=== PATIENT | male | born 1975 | race Caucasian/White ===

== ENCOUNTER → 2017-01-16 | Outpatient (CLI) | payer OTHER ==
[~2017-01-16] MED LIST: ALBU8I INH; ALBUAER3 INH; IOHEXOL 350 MG/ML 10 ML VIAL (for RAD DIAG) IV ONE; MONT10TA2 PO; MONT4CHW2 CHEW; NITROGLYCERIN 0.4 MG SL 25 TABS/BTL SL ONE; PRED50TA PO; SYMB80AE INH
--- NOTE | 2017-01-16 14:04 | RADRPT ---
EXAM DATE/TIME: 01/16/2017 10:34 [facility] COMPARISON: No previous studies available for comparison. INDICATIONS : Chest pain. IV CONTRAST: 95 cc Omnipaque 350 (iohexol) IV RADIATION DOSE: 8.7 CTDIvol (mGy) MEDICAL HISTORY : Gastroesophageal reflux disease. Asthma. SURGICAL HISTORY : Cholecystectomy. ENCOUNTER: Initial ACUITY: 1 week PAIN SCALE: 1/10 LOCATION: Bilateral chest TECHNIQUE: Volumetric scanning was obtained through the heart. Images were acquired on a multislice multiple ro w detector helical scanner timed for acquisition during peak arterial contrast. Images were reconstr ucted using a retrospective gating algorithm including single sector and multi-sector algorithms at m ultiple phases of the cardiac cycle. Images were interpreted using a combination of 2D and 3D visual ization modes including curved planar reformation, thin slab maximum intensity projection and volume rendering. Using automated exposure control and adjustment of the mA and/or kV according to patient size, radiation dose was kept as low as reasonably achievable to obtain optimal diagnostic quality im ages. FINDINGS: VESSEL ANALYSIS: DOMINANCE: The coronary system is left dominant with the posterior descending being supplied by the coronary art anatoliy. LEFT MAIN: Normal vessel without calcification or stenosis. LAD: Normal vessel caliber with minimal calcification in the LAD between the first and qsecond diagon al CIRCUMFLEX: Normal vessel without calcification or stenosis. RCA: Normal vessel without calcification or stenosis. OTHER: Calcium score of 3. This places the patient in the 60th percentile for age meaning that 40% of m ales between the ages of 41-45 to have a higher calcium score in this patient. CONCLUSION: 1. Calcium score of 3 which places patient in the 60th percentile for age. 2. Otherwise, coronary arteries are all widely patent with no significant stenosis. Patient is left c oronary dominant. 3. Minimal, dependent bilateral atelectatic changes. Stefano Velasco MD on January 16, 2017 at 13:44 Board Certified Radiologist. This report was verified electronically.
== END ==
LOC: HRAD 09:15
DX: R07.89 Other chest pain (principal)
CPT/HCPCS: 75574; Q9967

== ENCOUNTER 2017-02-15 12:35 | Emergency (ER) | payer OTHER ==
[~2017-02-15] VITALS: Ht 193 cm; Wt 105.0 kg
[~2017-02-15 12:35] MED LIST changes: -ALBUAER3 INH; -IOHEXOL 350 MG/ML 10 ML VIAL (for RAD DIAG) IV ONE; -MONT10TA2 PO; -NITROGLYCERIN 0.4 MG SL 25 TABS/BTL SL ONE; -SYMB80AE INH
[2017-02-15 12:36] VITALS: BP 129/78; PULSE 64; RESP 20; TEMP 97.4; O2SAT 99
[2017-02-15 12:40] VITALS: BP 122/78; PULSE 67; RESP 16; O2SAT 95
[2017-02-15] MEDS ORDERED: ALBUAER3 INH (12:53)
[2017-02-15] MEDS ORDERED: SYMB80AE INH (12:53)
[2017-02-15] MEDS ORDERED: MONT10TA2 PO (12:53)
--- NOTE | 2017-02-15 12:57 | PD ---
HPI Chief Complaint: Chest Pain Time Seen by Provider: 12:39 Travel History International Travel<30 days: No Contact w/Intl Traveler<30days: No Traveled to known affect area: No History of Present Illness HPI This is a 41-year-old male who presents to the emergency department with chest discomfort that he says has been going on for years described as pressure in the center of his chest, worse with deep breaths, improved with rest. He's been sick with an upper respiratory infection over the past week and has been taking prednisone. This has made everything worse and it's worse when he coughs. He went to a mental health appointment today where he told his psychiatrist that he has been having chest pains. They did an EKG and saw some T-wave inversions they sent him to the emergency department. Patient has been following with a marine architect and just had a cardiac CTA performed in January. The patient denies any change in his symptoms over the past week aside from the pain being slightly worse when he coughs. He otherwise would not have gone to the doctor or come to the hospital for this chest pain. PFSH Past Medical History Arthritis: Yes Asthma: Yes Anxiety: Yes Depression: Yes Cardiovascular Problems: No GERD: Yes Reproductive: Yes (LOW TESTOSTERONE) Respiratory: Yes (ASTHMA) Influenza Vaccination: Yes Past Surgical History Abdominal Surgery: Yes (2 HERNIA SURGERIES) Cholecystectomy: Yes Other Surgery: Yes (DEVIATED SEPTUM) Social History Alcohol Use: Yes (OCCASIONALLY) Tobacco Use: No (CHEWING TOBACCO) Substance Use: No Allergies-Medications (Allergen,Severity, Reaction): Coded Allergies: No Known Allergies (Unverified , 02/15/17) Reported Meds & Prescriptions Reported Meds & Active Scripts Active Reported Symbicort Inh (Budesonide/Formoterol Fumarate) 80-4.5 Mcg/Act Aero 2 Puff INH Q12HR Proair Hfa 8.5 GM Inh (Albuterol Sulfate) 90 Mcg/Act Aer 2 Puff INH Q6H PRN 108 mcg/actuation Singulair (Montelukast Sodium) 10 Mg Tab 4 Mg PO HS Review of Systems Except as stated in HPI: all other systems reviewed are Neg Physical Exam Narrative GENERAL:Well appearing, no acute distress SKIN: Warm and dry. HEAD: Atraumatic. Normocephalic. EYES: Pupils equal and round. No injection or drainage. ENT: Moist mucous membranes NECK: Trachea midline. CARDIOVASCULAR: Regular rate and rhythm. No murmur appreciated. RESPIRATORY: Clear to auscultation. Breath sounds equal bilaterally. GASTROINTESTINAL: Abdomen soft, non-tender, nondistended. MUSCULOSKELETAL: No obvious deformities. NEUROLOGICAL: Awake and alert. No obvious cranial nerve deficits. PSYCHIATRIC: Appropriate mood and affect; insight and judgment normal. Data Data Last Documented VS Vital Signs Date Time Temp Pulse Resp B/P Pulse Ox O2 Delivery O2 Flow Rate FiO2 02/15/17 12:40 67 16 122/78 95 02/15/17 12:36 97.4 Room Air Orders Electrocardiogram (02/15/17 12:46) Complete Blood Count With Diff (02/15/17 12:46) Comprehensive Metabolic Panel (02/15/17 12:46) Troponin I (02/15/17 12:46) Chest, Single Ap (02/15/17 12:46) Ecg Monitoring (02/15/17 12:46) Bilateral Bp Monitoring (02/15/17 12:46) Iv Access Insert/Monitor (02/15/17 12:46) Oximetry (02/15/17 12:46) Oxygen Administration (02/15/17 12:46) Sodium Chloride 0.9% Flush (Ns Flush) (02/15/17 13:00) Labs Laboratory Tests Test 02/15/17 13:05 White Blood Count 7.9 TH/MM3 Red Blood Count 4.81 MIL/MM3 Hemoglobin 14.5 GM/DL Hematocrit 41.1 % Mean Corpuscular Volume 85.5 FL Mean Corpuscular Hemoglobin 30.2 PG Mean Corpuscular Hemoglobin 35.3 % Concent Red Cell Distribution Width 13.4 % Platelet Count 246 TH/MM3 Mean Platelet Volume 7.2 FL Neutrophils (%) (Auto) 59.2 % Lymphocytes (%) (Auto) 27.7 % Monocytes (%) (Auto) 10.2 % Eosinophils (%) (Auto) 2.5 % Basophils (%) (Auto) 0.4 % Neutrophils # (Auto) 4.7 TH/MM3 Lymphocytes # (Auto) 2.2 TH/MM3 Monocytes # (Auto) 0.8 TH/MM3 Eosinophils # (Auto) 0.2 TH/MM3 Basophils # (Auto) 0.0 TH/MM3 CBC Comment AUTO DIFF Sodium Level 142 MEQ/L Potassium Level 3.6 MEQ/L Chloride Level 104 MEQ/L Carbon Dioxide Level 30.8 MEQ/L Anion Gap 7 MEQ/L Blood Urea Nitrogen 23 MG/DL Creatinine 1.09 MG/DL Estimat Glomerular Filtration 74 ML/MIN Rate Random Glucose 99 MG/DL Calcium Level 8.5 MG/DL Total Bilirubin 0.6 MG/DL Aspartate Amino Transf 48 U/L (AST/SGOT) Alanine Aminotransferase 89 U/L (ALT/SGPT) Alkaline Phosphatase 94 U/L Troponin I LESS THAN 0.02 NG/ML Total Protein 7.1 GM/DL Albumin 4.1 GM/DL MDM Medical Decision Making Medical Screen Exam Complete: Yes Emergency Medical Condition: Yes Interpretation(s) Afebrile, no tachycardia, normotensive No leukocytosis Mild transaminitis Troponin normal Differential Diagnosis Acute coronary syndrome, costochondritis, pneumonia, GERD, bronchitis Narrative Course This is a 41-year-old male who presents to the emergency department with chest pain that's been going on for years. He says his gotten a little bit worse in the setting of her recent upper respiratory infection. He wouldn't come here except his mental health provider at the [facility] didn't EKG and saw some T-wave inversions. He had a cardiac CTA done on January which demonstrated a calcium score of 3. While the patient may require further risk stratification, I don't think he needs to be done today. His chest pain he says has been constant for months to years. His troponin is normal here. I think the patient can safely be discharged and follow-up with his outpatient marine architect. Diagnosis Primary Impression: Atypical chest pain Patient Instructions: General Instructions Additional Instructions: If you develop severe chest pain, shortness of breath, sweating, lightheadedness , dizziness or difficulty breathing return to the emergency department immediately. Follow-up with her marine architect as scheduled without fail. Med/Other Pt SpecificInfo: No Change to Meds Disposition: 01 DISCHARGE HOME Condition: Stable Stacey Mansfield MD Feb 15, 2017 12:57
[2017-02-15] MEDS ORDERED: SODIUM CHLORIDE 0.9% FLUSH 5 ML FLUSH IVF PRN (13:00)
[2017-02-15 13:12] LABS: AUTOMATED NEUTROPHIL # 4.7 TH/MM3 (1.8-7.7); BASOPHIL % 0.4 % (0.0-2.0); EOSINOPHIL # 0.2 TH/MM3 (0-0.4); EOSINOPHIL % 2.5 % (0.0-4.0); HEMATOCRIT 41.1 % (39.0-51.0); LYMPH % 27.7 % (9.0-44.0); LYMPHOCYTE # 2.2 TH/MM3 (1.0-4.8); MEAN CELL VOLUME 85.5 FL (80.0-100.0); MEAN CORPUSCULAR HEMOGLOBIN 30.2 PG (27.0-34.0); MEAN CORPUSCULAR HGB CONC 35.3 % (32.0-36.0); MONO % 10.2 % (0.0-8.0); NEUT % 59.2 % (16.0-70.0); PLATELET COUNT 246 TH/MM3 (150-450); RED BLOOD COUNT 4.81 MIL/MM3 (4.50-5.90); RED CELL DISTRIBUTION WIDTH 13.4 % (11.6-17.2); WHITE BLOOD COUNT 7.9 TH/MM3 (4.0-11.0)
[2017-02-15 13:14] LABS: HEMO FLAGS AUTO DIFF
[2017-02-15 13:33] LABS: ANION GAP 7 MEQ/L (5-15); AST (GOT) 48 U/L (15-37); BICARBONATE 30.8 MEQ/L (21.0-32.0); BLOOD UREA NITROGEN 23 MG/DL (7-18); CHLORIDE 104 MEQ/L (98-107); GLOMERULAR FILTRATION RATE 74 ML/MIN (>89); POTASSIUM 3.6 MEQ/L (3.5-5.1); SODIUM (NA) 142 MEQ/L (136-145)
[2017-02-15 13:39] LABS: ALKALINE PHOSPHATASE 94 U/L (45-117); ALT (GPT) 89 U/L (12-78); TOTAL BILIRUBIN ADULT 0.6 MG/DL (0.2-1.0)
--- NOTE | 2017-02-15 13:43 | RADRPT ---
EXAM DATE/TIME: 02/15/2017 12:59 [facility] COMPARISON: CHEST SINGLE AP, October 18, 2015, 18:15. INDICATIONS : Chest pains. MEDICAL HISTORY : None. SURGICAL HISTORY : None. ENCOUNTER: Initial ACUITY: 1 day PAIN SCORE: 4/10 LOCATION: Bilateral chest FINDINGS: A single view of the chest demonstrates the lungs to be symmetrically aerated without evidence of mas s, infiltrate or effusion. The cardiomediastinal contours are unremarkable. Osseous structures are intact. CONCLUSION: Normal examination. Gilberto Bernard Jr., MD on February 15, 2017 at 13:41 Board Certified Radiologist. This report was verified electronically.
[2017-02-15 13:47] LABS: BANDS 2 % (0-6); EOSINOPHILS 3 % (0-4); METAMYELOCYTES 1 % (0-1); MYELOCYTES 1 % (0-0); NEUTROPHIL # MANUAL DIFF 5.3 TH/MM3 (1.8-7.7); PLATELET ESTIMATE SMEAR NORMAL (NORMAL); PLATELET MORPHOLOGY NORMAL (NORMAL); POLYS (SEG NEUTROPHILS) 63 % (16-70); SCAN/DIFF FINAL DIFF MANUAL; WBC DIFF SAMPLE 100
--- NOTE | 2017-02-15 18:01 | EKG ---
Date Performed: 02/15/2017 Time Performed: 10:50:00 PTAGE: 41 years EKG: Sinus rhythm NONSPECIFIC T-WAVE ABNORMALITY BORDERLINE ECG NO SIGNIFICANT CHANGE FROM PRIOR ELECTROCARDIOGRAM. PREVIOUS TRACING : 10/18/2015 18.05 DOCTOR: Pasha Mckinnon Interpretating Date/Time 02/15/2017 17:58:56
== END 2017-02-15 14:29 | disposition home or self-care (01) ==
LOC: NEPC 12:35
DX: R07.89 Other chest pain (principal); J45.909 Unspecified asthma, uncomplicated
CPT/HCPCS: 71010; 80053; 84484; 85007; 85027; 93005

== ENCOUNTER 2017-09-09 10:21 | Emergency (ER) | payer OTHER ==
[~2017-09-09 10:21] MED LIST changes: -ALBU8I INH; +ALBUAER3 INH; +MONT10TA2 PO; -MONT4CHW2 CHEW; -PRED50TA PO; +SYMB80AE INH
[2017-09-09 10:35] VITALS: BP 132/85; PULSE 81; RESP 20; TEMP 98; O2SAT 96
--- NOTE | 2017-09-09 10:43 | PD ---
HPI Chief Complaint: Chest Pain Time Seen by Provider: 10:30 Travel History International Travel<30 days: No Contact w/Intl Traveler<30days: No Traveled to known affect area: No History of Present Illness HPI Patient is a 41-year-old male presents emergency primary for evaluation of chest pain. He's had some evaluations for chest pain in the recent past states it's persistent. States is on the right side of his chest rate in the middle as well and worsens with palpation or deep breathing. Denies any shortness of breath denies any blurred vision dizziness. He states that despite being worked up no one can figure out what is causing his chest pain. He has been evaluated recently here as well. States he did have a stress test sometime ago which was negative but has not had one recently. Followed at the [facility]. Symptoms are mild to moderate, duration is several months, waxing and waning, associated symptoms as above PFSH Past Medical History Arthritis: Yes Asthma: Yes Anxiety: Yes Depression: Yes Cardiovascular Problems: No GERD: Yes Psychiatric: Yes (PTSD) Reproductive: Yes (LOW TESTOSTERONE) Respiratory: Yes (ASTHMA) Past Surgical History Abdominal Surgery: Yes (2 HERNIA SURGERIES) Cholecystectomy: Yes Other Surgery: Yes (DEVIATED SEPTUM) Social History Alcohol Use: Yes (OCCASIONALLY) Tobacco Use: No (CHEWING TOBACCO) Substance Use: No Allergies-Medications (Allergen,Severity, Reaction): Coded Allergies: No Known Allergies (Unverified , 09/09/17) Reported Meds & Prescriptions Reported Meds & Active Scripts Active Reported Symbicort Inh (Budesonide/Formoterol Fumarate) 80-4.5 Mcg/Act Aero 2 Puff INH Q12HR Proair Hfa 8.5 GM Inh (Albuterol Sulfate) 90 Mcg/Act Aer 2 Puff INH Q6H PRN 108 mcg/actuation Review of Systems Except as stated in HPI: all other systems reviewed are Neg Physical Exam Narrative GENERAL: Well-developed well-nourished no obvious distress SKIN: Focused skin assessment warm/dry. HEAD: Atraumatic. Normocephalic. EYES: Pupils equal and round. No scleral icterus. No injection or drainage. ENT: No nasal bleeding or discharge. Mucous membranes pink and moist. NECK: Trachea midline. No JVD. CARDIOVASCULAR: Regular rate and rhythm. No murmur appreciated. RESPIRATORY: No accessory muscle use. Clear to auscultation. Breath sounds equal bilaterally. GASTROINTESTINAL: Abdomen soft, non-tender, nondistended. Hepatic and splenic margins not palpable. MUSCULOSKELETAL: No obvious deformities. No clubbing. No cyanosis. No edema. NEUROLOGICAL: Awake and alert. No obvious cranial nerve deficits. Motor grossly within normal limits. Normal speech. PSYCHIATRIC: Appropriate mood and affect; insight and judgment normal. Data Data Last Documented VS Vital Signs Date Time Temp Pulse Resp B/P (MAP) Pulse Ox O2 Delivery O2 Flow Rate FiO2 09/09/17 12:10 09/09/17 11:24 62 20 97 09/09/17 10:35 98.0 Orders Orders Electrocardiogram (09/09/17 10:42) Ckmb (Isoenzyme) Profile (09/09/17 10:42) Complete Blood Count With Diff (09/09/17 10:42) Comprehensive Metabolic Panel (09/09/17 10:42) D-Dimer (09/09/17 10:42) Magnesium (Mg) (09/09/17 10:42) Prothrombin Time / Inr (Pt) (09/09/17 10:42) Act Partial Throm Time (Ptt) (09/09/17 10:42) Troponin I (09/09/17 10:42) Chest, Single Ap (09/09/17 10:42) Ecg Monitoring (09/09/17 10:42) Iv Access Insert/Monitor (09/09/17 10:42) Oximetry (09/09/17 10:42) Oxygen Administration (09/09/17 10:42) Aspirin Chew (Aspirin Chew) (09/09/17 10:45) Sodium Chloride 0.9% Flush (Ns Flush) (09/09/17 10:45) CKMB (09/09/17 10:30) CKMB% (09/09/17 10:30) Labs Laboratory Tests Test 09/09/17 10:30 White Blood Count 6.5 TH/MM3 Red Blood Count 4.99 MIL/MM3 Hemoglobin 14.7 GM/DL Hematocrit 43.7 % Mean Corpuscular Volume 87.7 FL Mean Corpuscular Hemoglobin 29.4 PG Mean Corpuscular Hemoglobin Concent 33.5 % Red Cell Distribution Width 12.4 % Platelet Count 233 TH/MM3 Mean Platelet Volume 7.8 FL Neutrophils (%) (Auto) 60.6 % Lymphocytes (%) (Auto) 26.4 % Monocytes (%) (Auto) 8.1 % Eosinophils (%) (Auto) 4.3 % Basophils (%) (Auto) 0.6 % Neutrophils # (Auto) 4.0 TH/MM3 Lymphocytes # (Auto) 1.7 TH/MM3 Monocytes # (Auto) 0.5 TH/MM3 Eosinophils # (Auto) 0.3 TH/MM3 Basophils # (Auto) 0.0 TH/MM3 CBC Comment DIFF FINAL Differential Comment Prothrombin Time 10.7 SEC Prothromb Time International Ratio 1.0 RATIO Activated Partial Thromboplast Time 28.4 SEC D-Dimer Quantitative (PE/DVT) 0.27 MG/L FEU Blood Urea Nitrogen 14 MG/DL Creatinine 1.00 MG/DL Random Glucose 100 MG/DL Total Protein 7.6 GM/DL Albumin 4.5 GM/DL Calcium Level 8.9 MG/DL Magnesium Level 2.1 MG/DL Alkaline Phosphatase 87 U/L Aspartate Amino Transf (AST/SGOT) 23 U/L Alanine Aminotransferase (ALT/SGPT) 51 U/L Total Bilirubin 0.6 MG/DL Sodium Level 140 MEQ/L Potassium Level 3.5 MEQ/L Chloride Level 104 MEQ/L Carbon Dioxide Level 29.4 MEQ/L Anion Gap 7 MEQ/L Estimat Glomerular Filtration Rate 82 ML/MIN Total Creatine Kinase 141 U/L Creatine Kinase MB 2.1 NG/ML Troponin I LESS THAN 0.02 NG/ML MDM Medical Decision Making Medical Screen Exam Complete: Yes Emergency Medical Condition: Yes Differential Diagnosis chest wall pain, ACS seems unlikely, chest pain with low risk for cardiac etiology, pneumonia. Narrative Course patient roomed in emergency department, troponin and d-dimer negative, chest x- ray negative. EKG shows nonspecific T-wave flattening but no significant changes. The patient on revisit is sleeping soundly in no distress. At this time I think he is low risk for cardiac etiology and can follow up with the [facility] for further workup. Discussed signs symptoms that should prompt emergent return to the ER. His chronic nature of his pain which just cause other than his heart as well. He is stable for discharge. Diagnosis Primary Impression: Chest pain with low risk for cardiac etiology Additional Instructions: Follow up with the [facility] this week for further evaluation. Disposition: 01 DISCHARGE HOME Condition: Stable Sajan Gay MD Sep 09, 2017 10:43
[2017-09-09 10:44] VITALS: O2SAT 99
[2017-09-09] MEDS ORDERED: ASPIRIN 81 MG CHEW TAB PO ONE (10:45)
[2017-09-09] MEDS ORDERED: SODIUM CHLORIDE 0.9% FLUSH 10 ML FLUSH IVF PRN (10:45)
[2017-09-09 10:56] LABS: BASOPHIL % 0.6 % (0.0-2.0); EOSINOPHIL # 0.3 TH/MM3 (0-0.4); EOSINOPHIL % 4.3 % (0.0-4.0); HEMATOCRIT 43.7 % (39.0-51.0); HEMO FLAGS DIFF FINAL; LYMPH % 26.4 % (9.0-44.0); LYMPHOCYTE # 1.7 TH/MM3 (1.0-4.8); MEAN CELL VOLUME 87.7 FL (80.0-100.0); MEAN CORPUSCULAR HEMOGLOBIN 29.4 PG (27.0-34.0); MEAN CORPUSCULAR HGB CONC 33.5 % (32.0-36.0); MONO % 8.1 % (0.0-8.0); NEUT % 60.6 % (16.0-70.0); PLATELET COUNT 233 TH/MM3 (150-450); RED BLOOD COUNT 4.99 MIL/MM3 (4.50-5.90); RED CELL DISTRIBUTION WIDTH 12.4 % (11.6-17.2); WHITE BLOOD COUNT 6.5 TH/MM3 (4.0-11.0)
[2017-09-09 11:02] LABS: CHLORIDE 104 MEQ/L (98-107); POTASSIUM 3.5 MEQ/L (3.5-5.1); SODIUM (NA) 140 MEQ/L (136-145)
[2017-09-09 11:06] LABS: ANION GAP 7 MEQ/L (5-15); BICARBONATE 29.4 MEQ/L (21.0-32.0); BLOOD UREA NITROGEN 14 MG/DL (7-18); MAGNESIUM 2.1 MG/DL (1.5-2.5)
[2017-09-09 11:09] LABS: ALT (GPT) 51 U/L (12-78); AST (GOT) 23 U/L (15-37); GLOMERULAR FILTRATION RATE 82 ML/MIN (>89)
[2017-09-09 11:10] LABS: TOTAL BILIRUBIN ADULT 0.6 MG/DL (0.2-1.0)
[2017-09-09 11:12] LABS: ALKALINE PHOSPHATASE 87 U/L (45-117); CREATINE KINASE 141 U/L (39-308)
--- NOTE | 2017-09-09 11:18 | RADRPT ---
EXAM DATE/TIME: 09/09/2017 11:07 [facility] COMPARISON: No previous studies available for comparison. INDICATIONS : Chest Pain MEDICAL HISTORY : None. SURGICAL HISTORY : None. ENCOUNTER: Initial ACUITY: 1 day PAIN SCORE: 4/10 LOCATION: Bilateral chest FINDINGS: A single view of the chest demonstrates the lungs to be symmetrically aerated without evidence of mas s, infiltrate or effusion. The cardiomediastinal contours are unremarkable. Osseous structures are intact. CONCLUSION: No acute disease. Jassi Greenberg MD on September 09, 2017 at 11:17 Board Certified Radiologist. This report was verified electronically.
[2017-09-09 11:20] LABS: APTT (PATIENT) 28.4 SEC (24.3-30.1); PROTHROMBIN TIME - PATIENT 10.7 SEC (9.8-11.6)
[2017-09-09 11:24] VITALS: BP 121/72; PULSE 62; RESP 20; O2SAT 97
[2017-09-09 11:24] LABS: CKMB 2.1 NG/ML (0.5-3.6)
--- NOTE | 2017-09-09 16:06 | EKG ---
Date Performed: 09/09/2017 Time Performed: 10:28:33 PTAGE: 41 years EKG: Sinus rhythm Compared to previous tracing, nonspecific T wave changes have improved NORMAL ECG PREVIOUS TRACING : 02/15/2017 10.50 DOCTOR: Shailesh Boyer Interpretating Date/Time 09/09/2017 16:05:29
== END 2017-09-09 12:11 | disposition home or self-care (01) ==
LOC: PHED 10:21
DX: R07.9 Chest pain, unspecified (principal); Z79.899 Other long term (current) drug therapy; Z87.39 Personal history of other diseases of the musculoskeletal system and connective tissue; Z87.09 Personal history of other diseases of the respiratory system; Z86.59 Personal history of other mental and behavioral disorders; Z87.19 Personal history of other diseases of the digestive system; Z87.438 Personal history of other diseases of male genital organs
CPT/HCPCS: 71010; 80053; 82550; 82552; 83735; 84484; 85025; 85379; 85610; 85730; 93005

== ENCOUNTER 2018-01-04 05:30 | Emergency (ER) | payer OTHER ==
[~2018-01-04] VITALS: Ht 193 cm; Wt 104.3 kg
[~2018-01-04 05:30] MED LIST changes: -MONT10TA2 PO
[2018-01-04 05:34] VITALS: BP 131/84; PULSE 75; RESP 18; TEMP 97.7; O2SAT 98
[2018-01-04] MEDS ORDERED: IBUPROFEN 600 MG TAB PO ONE (06:30)
[2018-01-04] MEDS ORDERED: DEXAMETHASONE SOD PHOS 4 MG/ML VIAL IM ONE (06:30)
--- NOTE | 2018-01-04 07:03 | PD ---
HPI Chief Complaint: Foreign Body Time Seen by Provider: 06:16 Travel History International Travel<30 days: No Contact w/Intl Traveler<30days: No Traveled to known affect area: No History of Present Illness HPI Patient is a 42-year-old male who comes in complaining of feeling as if his throat is closing. He says he woke up and he felt like he could not breathe or swallow. He says he was feeling fine prior to going to sleep. He denies fever or chills. He says he did not take anything because he is unable to swallow. He says he has never had this before. He does have pain to his throat. Severity is mild to moderate. PFSH Past Medical History Arthritis: Yes Asthma: Yes Anxiety: Yes Depression: Yes Cardiovascular Problems: No GERD: Yes Psychiatric: Yes (PTSD) Reproductive: Yes (LOW TESTOSTERONE) Respiratory: Yes (ASTHMA) Tetanus Vaccination: Unknown Past Surgical History Abdominal Surgery: Yes (2 HERNIA SURGERIES INGUINAL) Cholecystectomy: Yes Other Surgery: Yes (DEVIATED SEPTUM) Social History Alcohol Use: Yes (OCCASIONALLY) Tobacco Use: No (CHEWING TOBACCO) Substance Use: No Allergies-Medications (Allergen,Severity, Reaction): Coded Allergies: No Known Allergies (Unverified Adverse Reaction, Unknown, 01/04/18) Reported Meds & Prescriptions Reported Meds & Active Scripts Active Reported Symbicort Inh (Budesonide/Formoterol Fumarate) 80-4.5 Mcg/Act Aero 2 Puff INH Q12HR Proair Hfa 8.5 GM Inh (Albuterol Sulfate) 90 Mcg/Act Aer 2 Puff INH Q6H PRN 108 mcg/actuation Review of Systems General / Constitutional: No: Fever, Chills HENT: Positive: Sore Throat Cardiovascular: No: Chest Pain or Discomfort Respiratory: Positive: Shortness of Breath Gastrointestinal: No: Nausea, Vomiting Genitourinary: No: Dysuria Musculoskeletal: No: Myalgias, Edema Skin: No Rash, No Change in Pigmentation Neurologic: No: Weakness, Dizziness Physical Exam Narrative GENERAL: Awake and alert, no acute distress. SKIN: Focused skin assessment warm/dry. HEAD: Atraumatic. Normocephalic. EYES: Pupils equal and round. No scleral icterus. ENT: No tonsillar swelling or exudates. Uvula is midline. Airways patent. Mucous membranes pink and moist. CARDIOVASCULAR: Regular rate and rhythm. No murmur appreciated. RESPIRATORY: No accessory muscle use. Clear to auscultation. Breath sounds equal bilaterally. MUSCULOSKELETAL: No obvious deformities. No clubbing. No cyanosis. No edema. NEUROLOGICAL: Awake and alert. No obvious cranial nerve deficits. Motor grossly within normal limits. Normal speech. PSYCHIATRIC: Appropriate mood and affect; insight and judgment normal. Data Data Last Documented VS Vital Signs Date Time Temp Pulse Resp B/P (MAP) Pulse Ox O2 Delivery O2 Flow Rate FiO2 01/04/18 06:44 20 01/04/18 05:34 97.7 75 131/84 (100) 98 Orders Orders Group A Rapid Strep Screen (01/04/18 06:29) Dexamethasone Inj (Decadron Inj) (01/04/18 06:30) Ibuprofen (Motrin) (01/04/18 06:30) MDM Medical Decision Making Medical Screen Exam Complete: Yes Emergency Medical Condition: Yes Medical Record Reviewed: Yes Differential Diagnosis Pharyngitis versus strep throat versus influenza Narrative Course Patient is a 42-year-old male who comes in complaining of swollen throat and difficulty swallowing. Exam shows no acute abnormalities. Patient given Decadron and Toradol. Swab sent to check for strep throat, is negative. Patient advised to take ibuprofen as needed at home for pain. Advised follow- up with a primary care doctor. Advised to return to the ED as needed for any worsening symptoms. Diagnosis Primary Impression: Pharyngitis Qualified Codes: J02.8 - Acute pharyngitis due to other specified organisms Patient Instructions: General Instructions, Pharyngitis (ED) Additional Instructions: Take Tylenol or ibuprofen as needed for pain. Follow-up with a primary care doctor. Return to the ED as needed for any worsening symptoms. Disposition: 01 DISCHARGE HOME Condition: Stable Christy Mcguire MD Jan 04, 2018 07:03
[2018-01-04] MEDS ORDERED: KETOROLAC TROMETHAMINE 60 MG/2 ML (IM) VIAL IM ONE (07:15)
== END 2018-01-04 08:00 | disposition home or self-care (01) ==
LOC: PHED 05:30
DX: J02.9 Acute pharyngitis, unspecified (principal); M19.90 Unspecified osteoarthritis, unspecified site; J45.909 Unspecified asthma, uncomplicated; F32.9 Major depressive disorder, single episode, unspecified; K21.9 Gastro-esophageal reflux disease without esophagitis; F43.10 Post-traumatic stress disorder, unspecified; F17.220 Nicotine dependence, chewing tobacco, uncomplicated; Z79.51 Long term (current) use of inhaled steroids
CPT/HCPCS: 87081; 87880; 96372; 99283; J1100; J1885

== ENCOUNTER 2018-02-13 17:41 | Emergency (ER) | payer OTHER ==
[2018-02-13 17:47] VITALS: BP 151/84; PULSE 78; RESP 18; TEMP 97.8; O2SAT 100
[2018-02-13] MEDS ORDERED: NEXI40CA PO (17:52)
--- NOTE | 2018-02-13 17:58 | PD ---
HPI Chief Complaint: Chest Pain Time Seen by Provider: 17:48 Travel History International Travel<30 days: No Contact w/Intl Traveler<30days: No Traveled to known affect area: No History of Present Illness HPI This patient complains of chest pain. It's sharp stabbing knifelike pain in his left mid chest. Started 3 hours ago. Severity is moderate to severe in nature. He denies injury. No fever or cough. He is not exertional. It is brought on by deep breath. No history of PE. He is a nonsmoker. He's had other atypical chest pain center in the past but this feels different. No history of cardiac disease. No alleviating factors. PFSH Past Medical History Arthritis: Yes Asthma: Yes Anxiety: Yes Depression: Yes Cardiovascular Problems: No GERD: Yes Psychiatric: Yes (PTSD) Reproductive: Yes (LOW TESTOSTERONE) Respiratory: Yes (ASTHMA) Past Surgical History Abdominal Surgery: Yes (2 HERNIA SURGERIES INGUINAL) Cholecystectomy: Yes Other Surgery: Yes (DEVIATED SEPTUM) Social History Alcohol Use: No ("RECOVERING ALCOHOLIC") Tobacco Use: No (CHEWING TOBACCO) Substance Use: No Allergies-Medications (Allergen,Severity, Reaction): Coded Allergies: marijuana (Verified Allergy, Severe, SWELLING, REDNESS, 02/13/18) Reported Meds & Prescriptions Reported Meds & Active Scripts Active Tylenol-Codeine #3 (Acetaminophen-Codeine) 300-30 mg Tab 1 Tab PO Q6H PRN Reported Nexium (Esomeprazole DR) 40 Mg Capdr 40 Mg PO DAILY Review of Systems General / Constitutional: No: Fever Eyes: No: Visual changes HENT: No: Headaches Cardiovascular: Positive: Chest Pain or Discomfort Respiratory: No: Shortness of Breath Gastrointestinal: No: Abdominal Pain Genitourinary: No: Dysuria Musculoskeletal: No: Pain Skin: No Rash Neurologic: No: Weakness Psychiatric: No: Depression Endocrine: No: Polydipsia Hematologic/Lymphatic: No: Easy Bruising Physical Exam Narrative GENERAL: Well-nourished, well-developed patient with pleuritic left chest pain . SKIN: Focused skin assessment reveals no rash and nodules. Skin is Warm and dry. HEAD: Atraumatic. Normocephalic. EYES: Pupils equal and round. No scleral icterus. No injection or drainage. ENT: No nasal bleeding or discharge. Mucous membranes pink and moist. NECK: Trachea midline. No JVD. CARDIOVASCULAR: Regular rate and rhythm. No murmur appreciated. RESPIRATORY: No accessory muscle use. Clear to auscultation. Breath sounds equal bilaterally. GASTROINTESTINAL: Abdomen soft, non-tender, nondistended. Hepatic and splenic margins not palpable. MUSCULOSKELETAL: No obvious deformities. No clubbing. No cyanosis. No edema. No chest wall tenderness NEUROLOGICAL: Awake and alert. No obvious cranial nerve deficits. Motor grossly within normal limits. Normal speech. PSYCHIATRIC: Appropriate mood and affect; insight and judgment normal. Data Data Last Documented VS Vital Signs Date Time Temp Pulse Resp B/P (MAP) Pulse Ox O2 Delivery O2 Flow Rate FiO2 02/13/18 18:04 97 02/13/18 17:47 97.8 78 18 151/84 (106) Orders Orders Complete Blood Count With Diff (02/13/18 17:53) Basic Metabolic Panel (Bmp) (02/13/18 17:53) D-Dimer (02/13/18 17:53) Act Partial Throm Time (Ptt) (02/13/18 17:53) Prothrombin Time / Inr (Pt) (02/13/18 17:53) Iv Access Insert/Monitor (02/13/18 17:53) Electrocardiogram (02/13/18 17:53) Ecg Monitoring (02/13/18 17:53) Oximetry (02/13/18 17:53) Chest, Single Ap (02/13/18 17:53) Sodium Chloride 0.9% Flush (Ns Flush) (02/13/18 18:00) Ketorolac Inj (Toradol Inj) (02/13/18 18:00) Labs Laboratory Tests Test 02/13/18 18:03 White Blood Count 6.2 TH/MM3 Red Blood Count 4.73 MIL/MM3 Hemoglobin 13.7 GM/DL Hematocrit 40.8 % Mean Corpuscular Volume 86.3 FL Mean Corpuscular Hemoglobin 29.0 PG Mean Corpuscular Hemoglobin Concent 33.7 % Red Cell Distribution Width 12.3 % Platelet Count 245 TH/MM3 Mean Platelet Volume 7.4 FL Neutrophils (%) (Auto) 63.2 % Lymphocytes (%) (Auto) 24.9 % Monocytes (%) (Auto) 9.2 % Eosinophils (%) (Auto) 2.4 % Basophils (%) (Auto) 0.3 % Neutrophils # (Auto) 4.0 TH/MM3 Lymphocytes # (Auto) 1.5 TH/MM3 Monocytes # (Auto) 0.6 TH/MM3 Eosinophils # (Auto) 0.1 TH/MM3 Basophils # (Auto) 0.0 TH/MM3 CBC Comment DIFF FINAL Differential Comment Prothrombin Time 10.8 SEC Prothromb Time International Ratio 1.1 RATIO Activated Partial Thromboplast Time 28.6 SEC D-Dimer Quantitative (PE/DVT) 0.21 MG/L FEU Blood Urea Nitrogen 19 MG/DL Creatinine 1.10 MG/DL Random Glucose 98 MG/DL Calcium Level 8.6 MG/DL Sodium Level 140 MEQ/L Potassium Level 3.7 MEQ/L Chloride Level 105 MEQ/L Carbon Dioxide Level 31.5 MEQ/L Anion Gap 4 MEQ/L Estimat Glomerular Filtration Rate 73 ML/MIN MDM Medical Decision Making Medical Screen Exam Complete: Yes Emergency Medical Condition: Yes Medical Record Reviewed: Yes Differential Diagnosis PE, pleurisy, ACS Narrative Course I have reviewed the patient's electronic medical record. I reviewed his EKG which is normal His chest pain is clearly noncardiac but is suspicious for PE or pleurisy given the sharp stabbing abrupt nature However saturations are 100% on room air and there is no tachycardia I have sent lab studies I reviewed his chest x-ray which is normal CBC metabolic profiles are normal This patient is low risk for a PE and his d-dimer is 0.21 which shows to rule out PE in this low risk patient I wrote some Tylenol 3 On recheck he is doing well Diagnosis Primary Impression: Pleuritic chest pain Additional Instructions: The patient was advised to follow up with their physician and return if they worsen. The patient was warned about potential sedation for the medications they will receive on prescription. Med/Other Pt SpecificInfo: Prescription(s) given Scripts Acetaminophen-Codeine (Tylenol-Codeine #3) 300-30 mg Tab 1 TAB PO Q6H Y for PAIN, #15 TAB 0 Refills Prov: Ez Bryson MD 02/13/18 Disposition: 01 DISCHARGE HOME Condition: Stable Ez Bryson MD Feb 13, 2018 17:58
[2018-02-13] MEDS ORDERED: SODIUM CHLORIDE 0.9% FLUSH 10 ML FLUSH IVF PRN (18:00)
[2018-02-13] MEDS ORDERED: KETOROLAC TROMETHAMINE 30 MG/ML (IVP) VIAL IV PUSH ONE (18:00)
[2018-02-13 18:04] VITALS: O2SAT 97
[2018-02-13 18:19] LABS: BASOPHIL % 0.3 % (0.0-2.0); EOSINOPHIL # 0.1 TH/MM3 (0-0.4); EOSINOPHIL % 2.4 % (0.0-4.0); HEMATOCRIT 40.8 % (39.0-51.0); HEMOGLOBIN 13.7 GM/DL (13.0-17.0); LYMPH % 24.9 % (9.0-44.0); LYMPHOCYTE # 1.5 TH/MM3 (1.0-4.8); MEAN CELL VOLUME 86.3 FL (80.0-100.0); MEAN CORPUSCULAR HGB CONC 33.7 % (32.0-36.0); MEAN PLATELET VOLUME 7.4 FL (7.0-11.0); MONO % 9.2 % (0.0-8.0); MONOCYTE # 0.6 TH/MM3 (0-0.9); NEUT % 63.2 % (16.0-70.0); PLATELET COUNT 245 TH/MM3 (150-450); RED BLOOD COUNT 4.73 MIL/MM3 (4.50-5.90); RED CELL DISTRIBUTION WIDTH 12.3 % (11.6-17.2); WHITE BLOOD COUNT 6.2 TH/MM3 (4.0-11.0)
--- NOTE | 2018-02-13 18:20 | RADRPT ---
EXAM DATE/TIME: 02/13/2018 18:08 [facility] COMPARISON: CHEST SINGLE AP, September 09, 2017, 11:07. INDICATIONS : Chest pain today. MEDICAL HISTORY : Asthma. SURGICAL HISTORY : None. ENCOUNTER: Initial ACUITY: 1 day PAIN SCORE: 10/10 LOCATION: Bilateral chest FINDINGS: A single view of the chest demonstrates the lungs to be symmetrically aerated without evidence of mas s, infiltrate or effusion. The cardiomediastinal contours are unremarkable. Osseous structures are intact. CONCLUSION: No evidence of acute cardiopulmonary disease. Art Saldivar MD on February 13, 2018 at 18:18 Board Certified Radiologist. This report was verified electronically.
[2018-02-13 18:31] LABS: BICARBONATE 31.5 MEQ/L (21.0-32.0); CALCIUM 8.6 MG/DL (8.5-10.1)
[2018-02-13 18:35] LABS: CREATININE 1.1 MG/DL (0.60-1.30)
[2018-02-13 18:37] LABS: INTERNATIONAL NORMALIZED RATIO 1.1 RATIO; PROTHROMBIN TIME - PATIENT 10.8 SEC (9.8-11.6)
[2018-02-13 18:46] LABS: D-DIMER 0.21 MG/L FEU (0.00-0.50)
[2018-02-13] MEDS ORDERED: TYLETAB34 PO (18:49)
[2018-02-13 18:55] VITALS: BP 131/82; PULSE 75; RESP 16; O2SAT 95
--- NOTE | 2018-02-14 11:20 | EKG ---
Date Performed: 02/13/2018 Time Performed: 17:46:21 PTAGE: 42 years EKG: Sinus rhythm NORMAL ECG PREVIOUS TRACING : 09/09/2017 10.28 Since the previous tracing, no significant change noted DOCTOR: Wilfrid Lamb Interpretating Date/Time 02/14/2018 11:18:23
== END 2018-02-13 19:29 | disposition home or self-care (01) ==
LOC: PHED 17:41
DX: R07.81 Pleurodynia (principal); J45.909 Unspecified asthma, uncomplicated
CPT/HCPCS: 71045; 80048; 85025; 85379; 85610; 85730; 93005; 96374; 99285; J1885

== ENCOUNTER 2018-04-24 23:08 | Emergency (ER) | payer OTHER ==
[~2018-04-24 23:08] MED LIST changes: -ALBUAER3 INH; +NEXI40CA PO; -SYMB80AE INH; +TYLETAB34 PO
[2018-04-24 23:21] VITALS: BP 140/94; PULSE 80; RESP 20; TEMP 97.7; O2SAT 98
[2018-04-24] MEDS ORDERED: SODIUM CHLORIDE 0.9% FLUSH 10 ML FLUSH IVF PRN (23:45)
[2018-04-24 23:55] VITALS: BP 131/88; PULSE 76; RESP 18; O2SAT 97
--- NOTE | 2018-04-24 23:59 | PD ---
HPI Chief Complaint: Chest Pain Time Seen by Provider: 23:39 Travel History International Travel<30 days: No Contact w/Intl Traveler<30days: No Traveled to known affect area: No History of Present Illness HPI Patient comes in complaining of chest pain described as sharp, radiating all around his chest, per patient he has been getting over a bronchitis he just finished an antibiotic he cannot recall the name of the antibiotic. However he continues to have white to greenish sputum production, and the chest pain is worse with coughing or breathing or moving. Patient denies any nausea vomiting or diarrhea. Primary care is a [facility] Past medical history significant for asthma, cholecystectomy, 2 hernia surgeries , PTSD, depression, anxiety, service. PFS Past Medical History Arthritis: Yes Asthma: Yes Anxiety: Yes Depression: Yes Cardiovascular Problems: No GERD: Yes Psychiatric: Yes (PTSD) Reproductive: Yes (LOW TESTOSTERONE) Respiratory: Yes (ASTHMA) Past Surgical History Abdominal Surgery: Yes (2 HERNIA SURGERIES INGUINAL) Cholecystectomy: Yes Other Surgery: Yes (DEVIATED SEPTUM) Social History Alcohol Use: No ("RECOVERING ALCOHOLIC") Tobacco Use: No (CHEWING TOBACCO) Substance Use: No Allergies-Medications (Allergen,Severity, Reaction): Coded Allergies: marijuana (Verified Allergy, Severe, SWELLING, REDNESS, 04/25/18) Reported Meds & Prescriptions Reported Meds & Active Scripts Active Reported Ventolin Hfa 18 GM Inh (Albuterol Sulfate) 90 Mcg/Act Aer 2 Puff INH Q6H PRN Symbicort Inh (Budesonide/Formoterol Fumarate) 80-4.5 Mcg/Act Aero 2 Puff INH Q12HR Physical Exam Narrative GENERAL: SKIN: Warm and dry. HEAD: Atraumatic. Normocephalic. EYES: Pupils equal and round. No scleral icterus. No injection or drainage. ENT: No nasal bleeding or discharge. Mucous membranes pink and moist. NECK: Trachea midline. No JVD. CARDIOVASCULAR: Regular rate and rhythm. RESPIRATORY: No accessory muscle use. Clear to auscultation. Breath sounds equal bilaterally. Patient had reproducible chest wall pain on palpation GASTROINTESTINAL: Abdomen soft, non-tender, nondistended. MUSCULOSKELETAL: Extremities without clubbing, cyanosis, or edema. No obvious deformities. NEUROLOGICAL: Awake and alert. No obvious cranial nerve deficits. Motor grossly within normal limits. Five out of 5 muscle strength in the arms and legs. Normal speech. PSYCHIATRIC: Appropriate mood and affect; insight and judgment normal. Data Data Last Documented VS Vital Signs Date Time Temp Pulse Resp B/P (MAP) Pulse Ox O2 Delivery O2 Flow Rate FiO2 04/24/18 23:55 76 18 131/88 (102) 97 Room Air 04/24/18 23:21 97.7 Orders Orders B-Type Natriuretic Peptide (04/24/18 23:39) Ckmb (Isoenzyme) Profile (04/24/18 23:39) Complete Blood Count With Diff (04/24/18 23:39) Comprehensive Metabolic Panel (04/24/18 23:39) D-Dimer (04/24/18 23:39) Prothrombin Time / Inr (Pt) (04/24/18 23:39) Act Partial Throm Time (Ptt) (04/24/18 23:39) Troponin I (04/24/18 23:39) Lipase (04/24/18 23:39) Chest, Single Ap (04/24/18 23:39) Ecg Monitoring (04/24/18 23:39) Bilateral Bp Monitoring (04/24/18 23:39) Iv Access Insert/Monitor (04/24/18 23:39) Oximetry (04/24/18 23:39) Sodium Chloride 0.9% Flush (Ns Flush) (04/24/18 23:45) Labs Laboratory Tests Test 04/24/18 23:50 White Blood Count 8.3 TH/MM3 Red Blood Count 4.90 MIL/MM3 Hemoglobin 14.2 GM/DL Hematocrit 42.7 % Mean Corpuscular Volume 87.2 FL Mean Corpuscular Hemoglobin 29.0 PG Mean Corpuscular Hemoglobin Concent 33.3 % Red Cell Distribution Width 11.9 % Platelet Count 276 TH/MM3 Mean Platelet Volume 7.1 FL Neutrophils (%) (Auto) 60.5 % Lymphocytes (%) (Auto) 27.2 % Monocytes (%) (Auto) 8.8 % Eosinophils (%) (Auto) 2.8 % Basophils (%) (Auto) 0.7 % Neutrophils # (Auto) 5.0 TH/MM3 Lymphocytes # (Auto) 2.3 TH/MM3 Monocytes # (Auto) 0.7 TH/MM3 Eosinophils # (Auto) 0.2 TH/MM3 Basophils # (Auto) 0.1 TH/MM3 CBC Comment DIFF FINAL Differential Comment Prothrombin Time 10.6 SEC Prothromb Time International Ratio 1.0 RATIO Activated Partial Thromboplast Time 26.6 SEC D-Dimer Quantitative (PE/DVT) 0.27 MG/L FEU Blood Urea Nitrogen 21 MG/DL Creatinine 0.99 MG/DL Random Glucose 93 MG/DL Total Protein 6.9 GM/DL Albumin 3.9 GM/DL Calcium Level 8.6 MG/DL Alkaline Phosphatase 94 U/L Aspartate Amino Transf (AST/SGOT) 22 U/L Alanine Aminotransferase (ALT/SGPT) 55 U/L Total Bilirubin 0.7 MG/DL Sodium Level 140 MEQ/L Potassium Level 3.7 MEQ/L Chloride Level 106 MEQ/L Carbon Dioxide Level 28.5 MEQ/L Anion Gap 6 MEQ/L Estimat Glomerular Filtration Rate 83 ML/MIN Total Creatine Kinase 86 U/L Troponin I LESS THAN 0.02 NG/ML B-Type Natriuretic Peptide 5 PG/ML Lipase 155 U/L MDM Medical Decision Making Medical Screen Exam Complete: Yes Emergency Medical Condition: Yes Medical Record Reviewed: Yes Interpretation(s) EKG shows normal sinus rhythm, 74 bpm, J-point elevation consistent with benign early repolarization, no ST elevation pattern. Differential Diagnosis Pneumonia versus pneumothorax versus pleural effusion versus chest wall pain Narrative Course CBC shows no leukocytosis, no anemia, no left shift, normal platelet count Coagulation profile is within normal limits D-dimer is negative Electrolytes are all within normal limits Normal kidney, liver, and pancreatic functions Negative first set of cardiac enzymes. Negative beta natruretic peptide Chest x-ray read by radiologist as no acute cardiopulmonary process Diagnosis Primary Impression: Atypical chest pain Patient Instructions: Chest Pain (ED), General Instructions Scripts Cyclobenzaprine (Flexeril) 10 Mg Tab 10 MG PO TID for Muscle Spasm for 4 Days, #12 TAB 0 Refills Prov: Shahbaz Price MD 04/25/18 Ketorolac (Ketorolac) 10 Mg Tab 10 MG PO TID Y for Pain Management for 5 Days, #15 TAB 0 Refills Prov: Shahbaz Price MD 04/25/18 Disposition: 01 DISCHARGE HOME Condition: Stable Shahbaz Price MD April 24, 2018 23:59
[2018-04-25 00:01] LABS: BASOPHIL # 0.1 TH/MM3 (0-0.2); BASOPHIL % 0.7 % (0.0-2.0); EOSINOPHIL # 0.2 TH/MM3 (0-0.4); EOSINOPHIL % 2.8 % (0.0-4.0); HEMATOCRIT 42.7 % (39.0-51.0); HEMOGLOBIN 14.2 GM/DL (13.0-17.0); LYMPH % 27.2 % (9.0-44.0); LYMPHOCYTE # 2.3 TH/MM3 (1.0-4.8); MEAN CELL VOLUME 87.2 FL (80.0-100.0); MEAN CORPUSCULAR HGB CONC 33.3 % (32.0-36.0); MEAN PLATELET VOLUME 7.1 FL (7.0-11.0); MONO % 8.8 % (0.0-8.0); MONOCYTE # 0.7 TH/MM3 (0-0.9); NEUT % 60.5 % (16.0-70.0); PLATELET COUNT 276 TH/MM3 (150-450); RED CELL DISTRIBUTION WIDTH 11.9 % (11.6-17.2); WHITE BLOOD COUNT 8.3 TH/MM3 (4.0-11.0)
[2018-04-25] MEDS ORDERED: SYMB80AE INH (00:04)
[2018-04-25] MEDS ORDERED: VENTAER INH (00:04)
[2018-04-25 00:09] LABS: CHLORIDE 106 MEQ/L (98-107); SODIUM (NA) 140 MEQ/L (136-145)
[2018-04-25 00:12] LABS: CALCIUM 8.6 MG/DL (8.5-10.1)
[2018-04-25 00:13] LABS: ALBUMIN 3.9 GM/DL (3.4-5.0); BICARBONATE 28.5 MEQ/L (21.0-32.0); BLOOD UREA NITROGEN 21 MG/DL (7-18); GLUCOSE,RANDOM 93 MG/DL (74-106)
--- NOTE | 2018-04-25 00:13 | RADRPT ---
EXAM DATE: 04/25/2018 12:08 AM EDT AGE/SEX: 42 years / Male INDICATIONS: Chest pain for 2 hours CLINICAL DATA: This is the patient's initial encounter. Patient reports that signs and symptoms have been present for 1 day and indicates a pain score of 7/10. MEDICAL/SURGICAL HISTORY: Asthma. None. COMPARISON: [facility], CHEST SINGLE AP, 02/13/2018. . FINDINGS: A single AP view of the chest demonstrates the lungs to be symmetrically aerated without evidence of mass, infiltrate or effusion. The cardiomediastinal contours are unremarkable. Osseous structures a re intact. CONCLUSION: No acute cardiopulmonary process. Electronically signed by: Art Garza MD 04/25/2018 12:12 AM EDT
[2018-04-25 00:16] LABS: ALT (GPT) 55 U/L (12-78); AST (GOT) 22 U/L (15-37); CREATININE 0.99 MG/DL (0.60-1.30); GLOMERULAR FILTRATION RATE 83 ML/MIN (>89)
[2018-04-25 00:17] LABS: TOTAL BILIRUBIN ADULT 0.7 MG/DL (0.2-1.0); TOTAL PROTEIN 6.9 GM/DL (6.4-8.2)
[2018-04-25 00:18] LABS: ALKALINE PHOSPHATASE 94 U/L (45-117)
[2018-04-25 00:21] LABS: TROPONIN I LESS THAN 0.02 NG/ML (0.02-0.05)
[2018-04-25 00:28] LABS: PROTHROMBIN TIME - PATIENT 10.6 SEC (9.8-11.6)
[2018-04-25 00:43] LABS: D-DIMER 0.27 MG/L FEU (0.00-0.50)
[2018-04-25] MEDS ORDERED: CYCL10TA PO (01:32)
[2018-04-25] MEDS ORDERED: KETO10 PO (01:32)
[2018-04-25 02:01] VITALS: BP 119/75
--- NOTE | 2018-04-25 18:12 | EKG ---
Date Performed: 04/24/2018 Time Performed: 23:31:07 PTAGE: 42 years EKG: Sinus rhythm Since previous tracing, no significant change noted NORMAL ECG PREVIOUS TRACING : 02/13/2018 17.46 DOCTOR: Barbara Mackey Interpretating Date/Time 04/25/2018 18:10:12
== END 2018-04-25 02:03 | disposition home or self-care (01) ==
LOC: PHED 23:08
DX: R07.89 Other chest pain (principal); J45.909 Unspecified asthma, uncomplicated
CPT/HCPCS: 71045; 80053; 82550; 83690; 83880; 84484; 85025; 85379; 85610; 85730; 93005; 99285